=== PATIENT | female | born 1985 ===

== ENCOUNTER 2018-10-26 07:23 | Outpatient (CLI) | payer BC ==
--- NOTE | 2018-10-26 09:32 | CT ---
CT NECK SOFT TISSUES, WITH CONTRAST: CLINICAL INDICATION:Parotid mass COMPARISON: No prior comparison imaging FINDINGS: Aerodigestive tract:Free from significant mass effect. Parotid gland: There is a subtle, focal contour convexity of the anterolateral margin of the right pa rotid gland, with minimal relative increased density. This could relate to a focal area of lobularity or possibly an intrinsic parotid lesion, although the borders are indistinct due to isoden sity, making discrete size measurements difficult to obtain. Submandibular glands:No intrinsic mass, or inflammation. Lymph nodes: Borderline enlargement of bilateral cervical chain lymph nodes, nonspecific. Thyroid gland:Unremarkable. Incidental findings:None of significance. IMPRESSION: Small contour nodularity of the right parotid gland, at site of palpable concern, which could either relate to focal lobularity of the parotid gland versus an intrinsic mass. Consider localized ultrasound for additional characterization. Borderline size bilateral cervical chain lymph nodes. Correlate clinically. Findings conveyed via telephone to patient's physician, Ta Delatorre.
[2018-10-26] MEDS ORDERED: ISOVUE-370 76%-LOCM 1 ML ONE (10:04)
== END 2018-10-26 07:24 | disposition home or self-care (01) ==
LOC: BICCT 07:23
PROVIDERS: ATTEND Otolaryngology Plastic Surgery within the Head & Neck
DX: K11.8 Other diseases of salivary glands (principal)
CPT/HCPCS: 70491; Q9966